=== PATIENT | male | born 1995 | race Caucasian/White ===

== ENCOUNTER 2016-12-21 20:42 | Emergency (ER) | payer SELFPAY ==
[2016-12-21 20:50] VITALS: BP 133/73
--- NOTE | 2016-12-21 21:16 | ER Document Report ---
ED Hand/Wrist Injury - General Chief Complaint: Wrist Pain Stated Complaint: RIGHT WRIST PAIN Time Seen by Provider: 12/21/16 21:01 Mode of Arrival: Ambulatory Information source: Patient Notes: 21-year-old male presents to ED for complaint of right wrist pain. He states he injured it over a month ago picking up his girlfriend and heard a popping sound. States that he works picking up bricks all day and this wrist is began getting more more painful. He states he has not followed up with her primary doctor from his original injury. TRAVEL OUTSIDE OF THE [place] IN LAST 30 DAYS: No - HPI Injury to: Wrist - Right Onset: Other - A month ago but is progressively gotten worse Where: Home Timing: Still present Quality of pain: Achy Severity: Moderate Pain Level: 4 Context: Other - States he heard a popping sound when he picked his girlfriend of a month ago. 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 Lives with: Family - His brother and his friends Family History: CAD, DM, Hyperlipidemia, Hypertension, Malignancy Patient has suicidal ideation: No Patient has homicidal ideation: No - Past Medical History Cardiac Medical History: Reports: None Pulmonary Medical History: Reports: None EENT Medical History: Reports: None Neurological Medical History: Reports: Hx Migraine Endocrine Medical History: Reports: None Renal/ Medical History: Reports: None Malignancy Medical History: Reports None GI Medical History: Reports: None Musculoskeltal Medical History: Reports None Skin Medical History: Reports None Psychiatric Medical History: Reports: Hx Anxiety Traumatic Medical History: Reports: None Infectious Medical History: Reports: None Surgical Hx: Negative Past Surgical History: Reports: None - Immunizations Immunizations up to date: Yes Hx Diphtheria, Pertussis, Tetanus Vaccination: - unknown Review of Systems - Review of Systems Constitutional: No symptoms reported EENT: No symptoms reported Cardiovascular: No symptoms reported Respiratory: No symptoms reported Gastrointestinal: No symptoms reported Genitourinary: No symptoms reported Male Genitourinary: No symptoms reported Musculoskeletal: Joint pain - right wrist pain Skin: No symptoms reported Hematologic/Lymphatic: No symptoms reported Neurological/Psychological: No symptoms reported -: Yes All other systems reviewed and negative Physical Exam - Vital signs Vitals: Temp Pulse Resp BP Pulse Ox 97.8 F 76 20 133/73 H 100 12/21/16 20:47 12/21/16 20:47 12/21/16 20:47 12/21/16 20:47 12/21/16 20:47 Interpretation: Normal - General General appearance: Appears well, Alert - HEENT Head: Normocephalic, Atraumatic Eyes: Normal Pupils: PERRL - Respiratory Respiratory status: No respiratory distress Chest status: Nontender Breath sounds: Normal Chest palpation: Normal - Cardiovascular Rhythm: Regular Heart sounds: Normal auscultation Murmur: No - Abdominal Inspection: Normal Distension: No distension Bowel sounds: Normal Tenderness: Nontender Organomegaly: No organomegaly - Back Back: Normal, Nontender - Extremities General upper extremity: Normal inspection, Normal color, Normal ROM, Normal temperature General lower extremity: Normal inspection, Nontender, Normal color, Normal ROM , Normal temperature, Normal weight bearing. No: Marlen's sign Shoulder: Normal, Nontender Arm: Normal, Nontender Forearm: Normal, Nontender Wrist: Other - States he has pain at work when he is lifting bricks all day with this hand and he is usually able to take several breaks up but is only able to pick 2 bricks up with that hand and for works up with the other hand. He states he is left-hand dominant.. No: Tender, Abrasion, Axial load of thumb pain, Deformity, Dislocation, Ecchymosis, Instability, Laceration, Limited ROM, Navicular tenderness Hand: Normal, Nontender - Neurological Neuro grossly intact: Yes Cognition: Normal Orientation: AAOx4 Ayde Coma Scale Eye Opening: Spontaneous [place] Coma Scale Verbal: Oriented Ayde Coma Scale Motor: Obeys Commands Ayde Coma Scale Total: 15 Speech: Normal Motor strength normal: LUE, RUE, LLE, RLE Sensory: Normal - Psychological Associated symptoms: Normal affect, Normal mood - Skin Skin Temperature: Warm Skin Moisture: Dry Skin Color: Normal Course - Re-evaluation Re-evalutation: 12/21/16 21:24 Negative assessment to the right wrist no bony tenderness. He states it hurts on the ulnar side of his wrist when he lifts bricks at work. He has no tenderness to palpation at this time. Has full range of motion of all fingers and wrist. Full sensation to hand and fingers. No bruising no swelling noted. Will apply a cock-up splint for him to rest his wrist. Patient instructed to follow-up with orthopedics for continued pain in the wrist. Patient instructed to use ibuprofen [id number] and to elevate and ice the wrist if the pain continues. - Vital Signs Vital signs: Temp Pulse Resp BP Pulse Ox 97.8 F 76 20 133/73 H 100 12/21/16 20:47 12/21/16 20:47 12/21/16 20:47 12/21/16 20:47 12/21/16 20:47 Procedures - Immobilization Right Wrist Time completed: 21:40 Immobilizer type: Cock-up Performed by: Scooby - ber Post-Proc Neuro Vasc Exam: Normal Alignment checked and good: Yes Discharge - Discharge Clinical Impression: Wrist pain, right Condition: Stable Disposition: HOME, SELF-CARE Additional Instructions: You were seen today for right wrist pain for the past month. You state you injured your wrist a month ago and you heard a popping sound but have not followed up with her primary doctor or orthopedic doctor. SPLINT PRECAUTIONS: A splint has been placed. This will protect the area while healing begins. Your problem does NOT normally require a cast. It MUST, however, be held still! Keep the splint on ALL THE TIME until instructed to remove it by the doctor. As you begin to use the area, be careful. You shouldn't do anything which causes discomfort -- you may disturb the injury even with the splint in place. After the initial period of rest and elevation, if splint does not prevent pain when you move, come back. You may require placement of a different splint , or a cast. If there is unexpected severe pain, or numbness, discoloration, or swelling beyond the splint, you should return at once. If you feel that the splint has broken or become loose, come back. ICE & ELEVATION: Apply ice packs frequently against the painful area. Many different schedules are recommended, such as "20 minutes on, 20 minutes off" or "one hour ice, two hours rest." If you need to work, you may need to go longer between ice treatments. You should plan to have the area ice packed AT LEAST one- fourth of the time. The ice should be applied over the wrap, tape, or splint, or over a layer of cloth -- not directly against the skin. Some ice bags have a built-in cloth and can be put directly on the skin. Your injured part should be elevated as much as possible over the next 48 hours. Try to keep the injury above the level of the heart. Avoid use of the injured area. Elevation and rest will decrease the swelling. USE OF [id number] IBUPROFEN: Ibuprofen (Advil, Nuprin, Medipren, Motrin IB) is a medication for fever and pain control. In addition, it has anti- inflammatory effects which may be beneficial, especially in the treatment of injuries. It's best to take ibuprofen with food. Persons with ulcer disease or allergy to aspirin should notify their physician of this before taking ibuprofen. Ibuprofen can be given every four to six hours, for a total of four doses daily. Age Pain or fever dose Antiinflammatory dose 6-8 yr 200 mg (1 tab) 200 mg (1 tab) 9-11 yr 200 mg (1 tab) 200-400 mg (1-2 tab) 11-14 yr 200-400 mg (1-2 tab) 400 mg (2 tab) 15-adult 400 mg (2 tab) 600 mg (3 tab) FOLLOW-UP CARE: If you have been referred to a physician for follow-up care, call the physician s office for an appointment as you were instructed or within the next two days. If you experience worsening or a significant change in your symptoms, notify the physician immediately or return to the Emergency Department at any time for re-evaluation. Forms: Elevated Blood Pressure, Smoking Cessation Education, Return to Work Referrals: THAIS FERRER MD [ACTIVE STAFF] - Follow up as needed
== END 2016-12-21 21:41 | disposition home or self-care (01) ==
LOC: ER 20:42
DX: M25.531 Pain in right wrist (principal); F17.210 Nicotine dependence, cigarettes, uncomplicated; X50.3XXA Overexertion from repetitive movements, initial encounter
CPT/HCPCS: 99283; L3908